=== PATIENT | female | born 1975 | race Caucasian/White ===

== ENCOUNTER 2019-11-23 12:58 | Observation (INO) | payer OTHER ==
[~2019-11-23] VITALS: Ht 147.3 cm; Wt 72.6 kg
[2019-11-23 13:09] VITALS: BP 108/78
[2019-11-23] MEDS ORDERED: KETOROLAC 60 MG/2 ML VIAL IM ONE (13:20)
[2019-11-23 13:40] LABS: BASOPHILS # (AUTO) 0.1 K/uL (0.00-0.22); BASOPHILS % (AUTO) 0.9 % (0.0-2.0); EOSINOPHILS # (AUTO) 0.1 K/uL (0-0.4); EOSINOPHILS % (AUTO) 1.6 % (0.0-4.0); HEMATOCRIT 39.8 % (36-48); HEMOGLOBIN 13.4 g/dL (12.0-16.0); LYMPHOCYTES # (AUTO) 2.4 K/uL (2.5-16.5); LYMPHOCYTES % (AUTO) 29.8 % (20.5-51.1); MEAN CORPUSCULAR HEMOGLOBIN 29 pg (27-31); MEAN CORPUSCULAR HGB CONC 34 g/dL (33-37); MEAN CORPUSCULAR VOLUME 84.7 fL (80-94); MONOCYTES # (AUTO) 0.4 K/uL (0.8-1.0); MONOCYTES % (AUTO) 4.9 % (1.7-9.3); NEUTROPHILS % (AUTO) 62.8 % (42.2-75.2); PLATELET COUNT (AUTO) 253 K/uL (140-450); RED CELL DISTRIBUTION WIDTH 13.8 % (11.6-13.7)
[2019-11-23 13:53] LABS: APPEARANCE,URINE CLEAR (CLEAR); BILIRUBIN,URINE NEGATIVE (NEGATIVE); BLOOD, URINE NEGATIVE (NEGATIVE); COLOR,URINE YELLOW (YELLOW); LEUKOCYTE ESTERASE ,URINE NEGATIVE (NEGATIVE); NITRITE, URINE NEGATIVE (NEGATIVE); UGLUCOSE NEGATIVE (NEGATIVE)
[2019-11-23 20:00] VITALS: BP 112/82
[2019-11-24] VITALS: BP 116/65
[2019-11-24 08:00] VITALS: BP 114/61
[2019-11-24] MEDS ORDERED: IBUP200C97 PO (08:14)
[2019-11-24] MEDS ORDERED: IBUP-2213 PO (08:16)
[2019-11-24] MEDS ORDERED: IBUPROFEN 600 MG TAB PO SCH (09:00)
[2019-11-24] MEDS ORDERED: INFLUENZA VACCINE QUAD 0.5 ML SYR IMVAC PRN (09:50)
== END 2019-11-24 10:25 | disposition home or self-care (01) ==
LOC: MED 12:58 → MTU 17:13
PROVIDERS: ADMIT Obstetrics & Gynecology; ATTEND Obstetrics & Gynecology
DX: R10.2 Pelvic and perineal pain (principal); D25.9 Leiomyoma of uterus, unspecified; N83.209 Unspecified ovarian cyst, unspecified side; N83.519 Torsion of ovary and ovarian pedicle, unspecified side; Z90.49 Acquired absence of other specified parts of digestive tract; Z23 Encounter for immunization
CPT/HCPCS: 36415; 76830; 81003; 81025; 84702; 85025; 87081; 90471; 90686; 96372; 99284; G0378; J1885; Q0092